=== PATIENT | female | born 1985 | race Caucasian/White ===

== ENCOUNTER 2019-10-28 15:39 | Emergency (ER) | payer OTHER ==
[~2019-10-28] VITALS: Ht 170.2 cm; Wt 59.0 kg
[2019-10-28] MEDS ORDERED: BUPROPION XL300 MG PO (16:02)
[2019-10-28] MEDS ORDERED: DIAZEPAM 10 MG10 M1 PO (16:02)
[2019-10-28] MEDS ORDERED: CHILDREN'S ZYRT10 M1 PO (16:02)
[2019-10-28] MEDS ORDERED: HYDROXYZINE HCL25 M2 PO (16:03)
[2019-10-28] MEDS ORDERED: ESCITALOPRA5 MG/5 ML PO (16:04)
[2019-10-28] MEDS ORDERED: MINIPRESS2 MG PO (16:04)
[2019-10-28] MEDS ORDERED: VALACYCLOVIR1000 MG PO (16:05)
[2019-10-28 16:24] LABS: ABSOLUTE EOSINOPHILS 0.1 thou/uL (0.0-0.7); ABSOLUTE MONOCYTES 0.3 thou/uL (0.0-1.2); MCHC 34.6 g/dL (28.0-37.0); MPV 8.4 fl. (7.2-11.1); WBC 5.1 thou/uL (4.0-11.0)
[2019-10-28 16:25] LABS: ABSOLUTE BASOPHILS 0.1 thou/uL (0.0-0.2); ABSOLUTE LYMPHOCYTES 1.9 thou/uL (0.8-5.3); ABSOLUTE NEUTROPHILS 2.7 thou/uL (1.6-8.1); BASOPHILS 1.1 %; EOSINOPHILS 1.5 %; HEMATOCRIT 46.1 % (37.0-47.0); MCH 31.1 pg (26.0-34.0); MCV 89.8 fL (80.0-100.0); MONOCYTES 6.3 %; NUCLEATED RBCS 0 /100WBC; PLATELET COUNT* 278 thou/uL (150-400); POLYS 53.1 %; RBC 5.14 mil/uL (4.20-5.00); RDW-CV 13.9 % (10.5-14.5)
[2019-10-28 16:34] LABS: CALCIUM 9.8 mg/dL (8.5-10.1)
[2019-10-28 16:38] LABS: ALBUMIN 4.9 g/dL (3.4-5.0); TOTAL BILIRUBIN 0.4 mg/dL (<0.1-1.0); TOTAL PROTEIN 9.2 g/dL (6.4-8.2)
[2019-10-28 16:42] LABS: URINE BLOOD NEGATIVE (Negative); URINE CLARITY CLEAR; URINE COLOR YELLOW; URINE GLUCOSE-RANDOM NEGATIVE (Negative); URINE KETONES 1+ (Negative); URINE LEUKOCYTES-REFLEX NEGATIVE (Negative); URINE NITRITE-REFLEX NEGATIVE (Negative); URINE PROTEIN NEGATIVE (Negative); URINE UROBILINOGEN 0.2 E.U./dl (0.2-1.0)
[2019-10-28 16:43] LABS: ICTOTEST (BILI CONFIRMATORY) Negative (Negative); URINE BILIRUBIN 1+ (Negative)
[2019-10-28] MEDS ORDERED: AMOXICILLIN 50500 MG PO (17:06)
[2019-10-28] MEDS ORDERED: ONDANSETRON ODT4 MG PO (17:06)
[2019-10-28] MEDS ORDERED: MECLIZINE HCL25 M1 PO (17:06)
[2019-10-28] MEDS ORDERED: NASONEX17 GM NASAL (17:06)
[2019-10-28 18:11] VITALS: BP 112/54
== END 2019-10-28 18:13 | disposition home or self-care (01) ==
LOC: M.ERS 15:39
PROVIDERS: Physician Assistant
DX: J01.90 Acute sinusitis, unspecified (principal); Z20.828 Contact with and (suspected) exposure to other viral communicable diseases